=== PATIENT | female | born 1940 | race Caucasian/White ===

== ENCOUNTER 2022-02-25 20:22 | Inpatient (IN) | payer MEDICARE, BC ==
[~2022-02-25] VITALS: Ht 152.4 cm; Wt 62.6 kg
[2022-02-25] MEDS ORDERED: RANO500T3 PO (20:46)
[2022-02-25] MEDS ORDERED: NIFE30TA91 PO (20:46)
[2022-02-25] MEDS ORDERED: OLME1TAB19 PO (20:46)
[2022-02-25] MEDS ORDERED: TRAZ-182 PO (20:46)
[2022-02-25] MEDS ORDERED: FURO40TA5 PO (20:46)
--- NOTE | 2022-02-25 20:50 | NUR ---
Dr. Crandall at bedside for MSE.
[2022-02-25] MEDS ORDERED: ENALAPRILAT DIHYDRATE 1.25 MG/1 ML VIAL IV ONE ×2 (20:57→21:00)
[2022-02-25] MEDS ORDERED: ONDANSETRON 4 MG/2 ML VIAL ONE (20:57)
[2022-02-25] MEDS ORDERED: CLONIDINE HCL 0.1 MG TABLET ONE (20:58)
[2022-02-25] MEDS ORDERED: CLONIDINE HCL 0.1 MG TABLET PO ONE (21:00)
[2022-02-25] MEDS ORDERED: ONDANSETRON 4 MG/2 ML VIAL IV ONE (21:00)
[2022-02-25] MEDS ORDERED: ACETAMINOPHEN ES 500 MG TABLET ONE (21:05)
[2022-02-25] MEDS ORDERED: IV NORMAL SALINE 500 ML BAG IV ONE (21:15)
[2022-02-25 21:23] LABS: HEMATOCRIT 30.5 % (31.2-41.9); MEAN CORPUSCULAR HEMOGLOBIN 29.8 uug (24.7-32.8); MEAN CORPUSCULAR VOLUME 85.4 fL (75.5-95.3); PLATELET COUNT (AUTO) 286 K/uL (179-408)
[2022-02-25] MEDS ORDERED: ACETAMINOPHEN ES 500 MG TABLET PO ONE ×2 (21:30)
[2022-02-25 21:31] LABS: CREATININE 0.9 mg/dL (0.6-1.3); POTASSIUM 2.8 mmol/L (3.5-5.1)
--- NOTE | 2022-02-25 21:35 | NUR ---
Pt provided urine sample, sent to lab, patient out of ER for CT.
[2022-02-25 21:36] LABS: BILIRUBIN,TOTAL 0.4 mg/dL (0.2-1.0); TOTAL PROTEIN, SERUM 7.5 g/dL (6.4-8.2)
[2022-02-25 21:39] LABS: *BILIRUBIN,URIN NEGATIVE (NEGATIVE); *BLOOD, URINE NEGATIVE (NEGATIVE); *CLARITY,URINE CLEAR (CLEAR); *COLOR,URINE LIGHT YELLOW (YELLOW); *KETONES,URINE NEGATIVE (NEGATIVE); *UROBILINOGEN,URINE 0.2 E.U./dl (NORMAL); LEUKOCYTE ESTERASE ,URINE TRACE (NEGATIVE); NITRITE, URINE NEGATIVE (NEGATIVE); PH,URINE 8.5 (5.0-8.0); UGLUCOSE NEGATIVE (NEGATIVE)
--- NOTE | 2022-02-25 21:50 | NUR ---
Pt back to ER from CT.
[2022-02-25] MEDS ORDERED: POTASSIUM CHLORIDE 20 MEQ TAB.PRT.SR PO ONE (22:00)
[2022-02-25] MEDS ORDERED: POTASSIUM CHLORIDE 20 MEQ TAB.PRT.SR ONE (22:02)
--- NOTE | 2022-02-25 22:29 | NUR ---
Jesse rodrigues in [facility] - 02/25/22 at 2230 by TAN Called [facility] to page Dr. Mike Bone.
--- NOTE | 2022-02-25 22:30 | NUR ---
Called [facility] to page Loretta Edmond NP.
[2022-02-25 22:40] LABS: BACTERIA,URINE NONE SEEN /HPF (NONE SEEN); RBC,URINE 0-3 /HPF (0-3); SQUAMOUS EPITHELIAL CELL,UR FEW /HPF (NONE SEEN); WBC,URINE 0-3 /HPF (0-3)
--- NOTE | 2022-02-25 22:41 | NUR ---
Dr. Crandall on panel call with Loretta Edmond [employer]. Patient accepted for admission to [facility], diagnosis: hyponatremia.
[2022-02-25] MEDS ORDERED: HYDROMORPHONE 1 MG/1 ML DISP.SYRIN ONE (23:08)
[2022-02-25] MEDS ORDERED: HYDROMORPHONE 1 MG/1 ML DISP.SYRIN IV ONE (23:15)
--- NOTE | 2022-02-25 23:22 | NUR ---
Report given to Lisa RODRIGUEZ Tele.
[2022-02-25] MEDS ORDERED: hydrALAZINE HCL 20 MG/1 ML VIAL IV PRN (23:30)
[2022-02-25] MEDS ORDERED: IV 0.9% SODIUM CHLORID+ 20 KCL 1,000 ML IV PRN (23:30)
[2022-02-25] MEDS ORDERED: MAGNESIUM HYDROXIDE 30 ML LIQUID UDC PO PRN (23:30)
[2022-02-25] MEDS ORDERED: REMEDY ESSENTIAL ZINC PASTE 113 GM TP PRN (23:30)
[2022-02-26] MEDS ORDERED: CEFTRIAXONE 1 G in IV DEXTROSE 5% 50 ML IV SCH ×2
[2022-02-26 00:48] VITALS: BP 103/52
[2022-02-26] MEDS: ENOXAPARIN SODIUM 40 MG/0.4 ML DISP.SYRIN SQ SCH ×2 (00:49→20:26)
[2022-02-26] MEDS ORDERED: IV 0.9% SODIUM CHLORID+ 20 KCL 1,000 ML ONE (00:53)
[2022-02-26] MEDS: ACETAMINOPHEN 325 MG TABLET PO PRN ×2 (00:58→07:39)
[2022-02-26] MEDS ORDERED: CEFTRIAXONE /D5W 50ML IVPB **ER PYXIS IV ONE (01:03)
--- NOTE | 2022-02-26 01:30 | NUR ---
Admitted pt to tele from ER accompanied by Maxi RODRIGUEZ via guillermo. She is alert and oriented x4, able to make needs known. On room air, no respiratory distress noted. HOB elevated d/t to patient feeling dizzy and nauseated. Initial assessment and full body assessment done. Noted with back end engineer on JONATHAN, given to daughter in law. IV on R wrist G#20 patent and intact. All needs attended. Call light placed within reach.
[2022-02-26] MEDS: ONDANSETRON 4 MG/2 ML VIAL IV PRN ×3 (01:35→15:17)
[2022-02-26] MEDS: HYDROMORPHONE 1 MG/1 ML DISP.SYRIN IV PRN ×2 (04:32→10:20)
[2022-02-26 04:39] VITALS: BP 102/45
--- NOTE | 2022-02-26 05:31 | NUR ---
Patient c/o of headache, tylenol 650 mg PRN given. Still complaint of terrible pain after [address] Celaya informed and gave order of Dilaudid 0.5 mg IVP Q4H PRN, aware of codeine allergy. Dilaudid given and tolerated well. No allergic reaction noted.
[2022-02-26 06:46] LABS: HEMATOCRIT 29.5 % (31.2-41.9); MEAN CORPUSCULAR HEMOGLOBIN 29.5 uug (24.7-32.8); MEAN CORPUSCULAR VOLUME 85.5 fL (75.5-95.3); PLATELET COUNT (AUTO) 262 K/uL (179-408)
[2022-02-26 07:03] LABS: CREATININE 0.7 mg/dL (0.6-1.3); MAGNESIUM 1.8 mg/dL (1.8-2.4); PHOSPHOROUS 2.8 mg/dL (2.5-4.9); POTASSIUM 3.4 mmol/L (3.5-5.1)
[2022-02-26 07:16] LABS: THYROID STIMULATING HORMONE 2.207 mIU/mL (0.358-3.740)
--- NOTE | 2022-02-26 08:12 | NUR ---
Patient complained of a headache but declined Tylenol, said it doesn't help her. Also complained of nausea and was given Zofran. Patient is resting in bed now.
[2022-02-26] MEDS ORDERED: NIFEdipine XL 90 MG TABSR PO SCH (09:00)
[2022-02-26] MEDS ORDERED: PANTOPRAZOLE SODIUM 40 MG VIAL IV SCH (09:00)
[2022-02-26] MEDS: ASPIRIN 81 MG TAB.CHEW PO SCH (09:51)
[2022-02-26] MEDS: RANOLAZINE 500 MG TAB.ER.12H PO SCH ×2 (09:51→20:18)
[2022-02-26] MEDS: LOSARTAN POTASSIUM 50 MG TABLET PO SCH (09:57)
[2022-02-26] MEDS ORDERED: POTASSIUM CHLORIDE 20 MEQ TAB.PRT.SR PO ONE (10:00)
[2022-02-26] MEDS ORDERED: METOCLOPRAMIDE HCL 10 MG/2 ML VIAL IV PRN (11:15)
[2022-02-26 12:00] VITALS: BP 132/65
[2022-02-26 16:00] VITALS: BP 111/61
[2022-02-26] MEDS ORDERED: IV SODIUM CHLORIDE 3% 500 ML IV PRN (16:30)
[2022-02-26] MEDS ORDERED: PANT40TA2 PO (18:15)
[2022-02-26] MEDS ORDERED: ROSU10TA2 GT (18:18)
[2022-02-26] MEDS ORDERED: FLUT16SP16 BNOSTRILS (18:19)
--- NOTE | 2022-02-26 18:34 | NUR ---
Patient received care well throughout shift with no signs of distress or discomfort. Patient has new IV site on left wrist 22g running NaCl 3% at 40cc/hr. IV site patent and intact. Bed left in lowest position with call light within reach. Comfort measures provided. Will endorse information to PM nurse.
--- NOTE | 2022-02-26 19:45 | NUR ---
Received patient in bed. AAOX4. No acute distress noted at this time. Blood pressure within normal limits. IV access running 3% NaCl at 40cc/hr, to run for 5 hours only. Safety and Aspirations precautions in place. Will continue to monitor.
[2022-02-26] MEDS: AMOXICILLIN-CLAVUL 875-125MG TABLET PO SCH (20:18)
[2022-02-26 20:20] VITALS: BP 117/57
[2022-02-26] MEDS: POTASSIUM CHLORIDE 10 MEQ TAB.PRT.SR PO SCH (20:20)
[2022-02-26] MEDS ORDERED: ATORVASTATIN 20 MG TABLET PO SCH (21:00)
[2022-02-26] MEDS ORDERED: TRAZODONE 50 MG TABLET PO SCH (21:00)
[2022-02-27 00:42] VITALS: BP 119/66
[2022-02-27 04:10] VITALS: BP 123/68
[2022-02-27 06:24] LABS: CREATININE 0.8 mg/dL (0.6-1.3); POTASSIUM 3.8 mmol/L (3.5-5.1)
--- NOTE | 2022-02-27 06:43 | NUR ---
Patient slept through the night. No acute distress noted. Sinus rhythm on tele monitor. All needs attended to and met. Safety precautions maintained. Will endorse to day shift.
[2022-02-27] MEDS ORDERED: PANTOPRAZOLE SODIUM 40 MG TABLET.DR PO SCH (07:00)
--- NOTE | 2022-02-27 07:30 | NUR ---
PATIENT RECEIVED IN BED AWAKE ALERT AND ORIENTED DENIES PAIN OR DISCOMFORTS AT THIS TIME ON ROOM AIR WITH NO SOB AT THIS TIME REMAIN ON IVF ORDERED WITH NO S/S OF INFILTERATION ON SITE [place]ON DIET ORDERED NO S/S OF ADVERSE EFFECT FROM ATB ORDERED NOT IN DISTRESS AT THIS TIME. Addendum: 02/27/22 at 1229 by CHAYA MIR RN ERROR PATIENT IS NOT ON IVF AT THIS TIME.
[2022-02-27] MEDS: RANOLAZINE 500 MG TAB.ER.12H PO SCH (08:33)
[2022-02-27] MEDS: ASPIRIN 81 MG TAB.CHEW PO SCH (08:33)
[2022-02-27] MEDS: AMOXICILLIN-CLAVUL 875-125MG TABLET PO SCH (08:33)
[2022-02-27] MEDS: POTASSIUM CHLORIDE 10 MEQ TAB.PRT.SR PO SCH (08:34)
[2022-02-27] MEDS: LOSARTAN POTASSIUM 50 MG TABLET PO SCH (08:34)
[2022-02-27] MEDS: ACETAMINOPHEN 325 MG TABLET PO PRN (09:26)
[2022-02-27 12:02] VITALS: BP 112/61
--- NOTE | 2022-02-27 13:40 | NUR ---
PATIENT SEEN BY DR BELLA WITH ORDER TO DISCHARGE PATIENT HOME TODAY PATIENT AWARE AND STATED THAT HER SON GISSELL WILL BE HERE ABOUT 1530 TO TAKE HER HOME.
[2022-02-27] MEDS ORDERED: LOSA50TA3 PO (13:46)
[2022-02-27] MEDS ORDERED: ROSU10TA2 PO (13:46)
[2022-02-27] MEDS ORDERED: AMOX1TAB16 PO (13:46)
[2022-02-27] MEDS ORDERED: ASPI81TA31 PO (13:46)
[2022-02-27] MEDS ORDERED: FURO-152 PO (13:46)
[2022-02-27] MEDS ORDERED: POTA10CA43 PO (13:46)
--- NOTE | 2022-02-27 15:30 | NUR ---
PATIENT DISCHARGED PICKED UP BY HIS SON GISSELL IN SATISFACTORY CONDITION WITH DISCHARGE INSTRUCTIONS AND PATIENT NOTIFIED THAT HER PRESCRIPTIONS WAS ELECTRONICALLY SENT TO HER PHARMACY TO PICK THEM UP AND SHE EXPRESSED UNDERSTANDING.
== END 2022-02-27 15:30 | disposition home or self-care (01) | DRG 153 ==
LOC: ER 20:30 → TELE3 23:34 → MEDSURG3 02-27 13:39
PROVIDERS: ADMIT Internal Medicine; ATTEND Internal Medicine
DX: J32.8 Other chronic sinusitis (principal); E22.2 Syndrome of inappropriate secretion of antidiuretic hormone; E66.9 Obesity, unspecified; D50.9 Iron deficiency anemia, unspecified; E87.6 Hypokalemia; I10 Essential (primary) hypertension; I25.10 Atherosclerotic heart disease of native coronary artery without angina pectoris; R73.9 Hyperglycemia, unspecified; M19.90 Unspecified osteoarthritis, unspecified site; R93.1 Abnormal findings on diagnostic imaging of heart and coronary circulation; Z20.822 Contact with and (suspected) exposure to COVID-19; R51.9 Headache, unspecified
CPT/HCPCS: 36415; 70450; 71045; 83690; 83735; 84100; 84132; 84443; 84484; 85025; 85651; 85730; 87086; 93005; 93307; 97161; A4663; A9150; C9113; G0378; J0696; J1170; J1650; J2405; J2765; J3490; J7040

== ENCOUNTER 2022-03-07 05:17 | Emergency (ER) | payer MEDICARE, BC ==
[~2022-03-07] VITALS: Ht 152.4 cm; Wt 63.5 kg
[~2022-03-07 05:17] MED LIST: AMOX1TAB16 PO; ASPI81TA31 PO; FURO-152 PO; LOSA50TA3 PO; PANT40TA2 PO; POTA10CA43 PO; RANO500T3 PO; ROSU10TA2 PO; TRAZ-182 PO
--- NOTE | 2022-03-07 05:40 | NUR ---
pt in room 4a c/o elevated blood pressure.
--- NOTE | 2022-03-07 05:45 | NUR ---
Dr. Flores at bedside for MSE.
[2022-03-07 06:33] LABS: HEMATOCRIT 28.8 % (31.2-41.9); MEAN CORPUSCULAR HEMOGLOBIN 29.7 uug (24.7-32.8); MEAN CORPUSCULAR VOLUME 87.8 fL (75.5-95.3); PLATELET COUNT (AUTO) 274 K/uL (179-408)
[2022-03-07 06:34] LABS: CARBON DIOXIDE 26 mmol/L (21-32); CHLORIDE 102 mmol/L (98-107); GLUCOSE 118 mg/dL (74-106); MAGNESIUM 2.1 mg/dL (1.8-2.4); POTASSIUM 3.7 mmol/L (3.5-5.1); UREA NITROGEN, BLOOD 20 mg/dL (7-18)
--- NOTE | 2022-03-07 07:03 | NUR ---
Patient discharged to home in stable condition. Written and verbal after care instructions given. Patient verbalizes understanding of instructions. Stressed follow up or return to ER for worsening s/s. instructions reviewed with pt, she is calling a caregiver to come and get her. the pt will remain in room 4a until child care center administrator arrives, dayshift RN, aware.
--- NOTE | 2022-03-07 07:28 | NUR ---
Pt picked up by caregiver.
[2022-03-07 07:29] VITALS: BP 150/94
== END 2022-03-07 07:31 | disposition home or self-care (01) ==
LOC: ER 05:17
DX: I10 Essential (primary) hypertension (principal); I45.10 Unspecified right bundle-branch block; I25.10 Atherosclerotic heart disease of native coronary artery without angina pectoris; Z79.899 Other long term (current) drug therapy; G31.83 Neurocognitive disorder with Lewy bodies; F02.80 Dementia in other diseases classified elsewhere, unspecified severity, without behavioral disturbance, psychotic disturbance, mood disturbance, and anxiety
CPT/HCPCS: 36415; 83735; 85025; 93005; A4663

== ENCOUNTER 2024-05-18 17:49 | Emergency (ER) | payer MEDICARE, BC ==
[~2024-05-18] VITALS: Ht 152.4 cm; Wt 59.0 kg
[~2024-05-18 17:49] MED LIST changes: -ROSU10TA2 PO
[2024-05-18 19:18] LABS: BASOPHILS # (AUTO) 0.1 K/UL (0.0-0.2); EOSINOPHILS # (AUTO) 0.2 K/uL (0.0-0.7); EOSINOPHILS % (AUTO) 2.9 % (0.0-7.0); HEMATOCRIT 28.3 % (31.2-41.9); HEMOGLOBIN 9.4 g/dL (10.9-14.3); LYMPHOCYTES # (AUTO) 1.6 K/uL (0.8-4.8); LYMPHOCYTES % (AUTO) 19.6 % (20.5-51.5); MEAN CORPUSCULAR HEMOGLOBIN 28.4 uug (24.7-32.8); MEAN CORPUSCULAR HGB CONC 33 g/dL (32.3-35.6); MEAN CORPUSCULAR VOLUME 85.8 fL (75.5-95.3); MONOCYTES # (AUTO) 0.9 K/uL (0.1-1.30); MONOCYTES % (AUTO) 10.6 % (0.0-11.0); NEUTROPHILS # (AUTO) 5.5 K/uL (1.8-8.9); NEUTROPHILS % (AUTO) 65.9 % (38.5-71.5); PLATELET COUNT (AUTO) 363 K/uL (179-408); RED BLOOD CELL COUNT(AUTO) 3.29 MIL/uL (3.63-4.92); RED CELL DISTRIBUTION WIDTH 17.2 % (12.3-17.7); WHITE BLOOD COUNT (AUTO) 8.4 K/uL (3.8-11.8)
[2024-05-18 19:24] LABS: DIFFERENTIAL COMMENT 1
[2024-05-18 19:26] LABS: CALCIUM 8.7 mg/dL (8.5-10.1); CARBON DIOXIDE 21 mmol/L (21-32); CHLORIDE 97 mmol/L (98-107); CREATININE 0.6 mg/dL (0.6-1.3); GLUCOSE 110 mg/dL (74-106); POTASSIUM 3.9 mmol/L (3.5-5.1); SODIUM SERUM 130 mmol/L (136-145); UREA NITROGEN, BLOOD 18 mg/dL (7-18)
[2024-05-18] MEDS ORDERED: ASPI81TA31 PO (19:27)
[2024-05-18] MEDS ORDERED: SACU1TAB4 PO (19:27)
[2024-05-18] MEDS ORDERED: CARV12.52 PO (19:27)
[2024-05-18] MEDS ORDERED: ROSU20TA2 PO (19:27)
[2024-05-18 19:31] LABS: ALANINE AMINOTRANSFERASE 26 U/L (14-59); ALBUMIN 3.1 g/dL (3.4-5.0); ALKALINE PHOSPHATASE 72 U/L (50-136); ASPARTATE AMINOTRANSFERASE 8 U/L (15-37); BILIRUBIN,TOTAL 0.6 mg/dL (0.2-1.0); LIPASE 38 U/L (16-77); TOTAL PROTEIN, SERUM 6.5 g/dL (6.4-8.2)
[2024-05-18 19:32] LABS: BILIRUBIN,DIRECT < 0.1 mg/dL (0.0-0.2)
[2024-05-18] MEDS: IV LACTATED RINGERS SOLUTION 1,000 ML IV ONE (19:47)
[2024-05-18] MEDS ORDERED: MORPHINE SULFATE 2 MG/1 ML DISP.SYRIN ONE ×2 (20:31→21:11)
[2024-05-18] MEDS ORDERED: METOCLOPRAMIDE HCL 10 MG/2 ML VIAL ONE (20:31)
[2024-05-18] MEDS: MORPHINE SULFATE 2 MG/1 ML DISP.SYRIN IV ONE ×2 (20:38→21:53)
[2024-05-18 20:52] LABS: *CLARITY,URINE CLEAR (CLEAR); *COLOR,URINE YELLOW (YELLOW); *PROTEIN,URINE NEGATIVE (NEGATIVE); UGLUCOSE NEGATIVE (NEGATIVE)
[2024-05-18 20:53] LABS: *BILIRUBIN,URIN NEGATIVE (NEGATIVE); *BLOOD, URINE TRACE (NEGATIVE); *KETONES,URINE NEGATIVE (NEGATIVE); *UROBILINOGEN,URINE 0.2 E.U./dl (NORMAL); LEUKOCYTE ESTERASE ,URINE 1+ (NEGATIVE); NITRITE, URINE NEGATIVE (NEGATIVE)
[2024-05-18 21:00] LABS: RBC,URINE 0-3 /HPF (0-3)
[2024-05-18 21:01] LABS: BACTERIA,URINE FEW /HPF (NONE SEEN); SQUAMOUS EPITHELIAL CELL,UR FEW /HPF (NONE SEEN)
[2024-05-18] MEDS ORDERED: ONDANSETRON 4 MG/2 ML VIAL ONE (21:10)
[2024-05-18] MEDS: METOCLOPRAMIDE HCL 10 MG/2 ML VIAL IV ONE (21:14)
[2024-05-18 21:39] LABS: *SODIUM RNDM,URINE 53 mmol/L (40-220)
[2024-05-18] MEDS: ONDANSETRON 4 MG/2 ML VIAL IV ONE (21:53)
[2024-05-18] MEDS ORDERED: FOSFOMYCIN TROMETHAMINE 3 GM PACKET ONE (21:58)
[2024-05-18] MEDS: FOSFOMYCIN TROMETHAMINE 3 GM PACKET PO ONE (22:02)
[2024-05-18 22:45] VITALS: BP 139/63; TEMP 98.6; O2SAT 98
== END 2024-05-18 22:45 | disposition home or self-care (01) ==
LOC: ER 17:50
DX: N39.0 Urinary tract infection, site not specified (principal); R10.32 Left lower quadrant pain; I10 Essential (primary) hypertension; Z98.890 Other specified postprocedural states; Z79.899 Other long term (current) drug therapy; Z79.82 Long term (current) use of aspirin; Z88.5 Allergy status to narcotic agent
CPT/HCPCS: 99285; 74176; 96374; 96361; 71045; 96375; 80076; 80048; 81001; 83690; 84300; 85025; 36415; 93005 ×2; J2765; J2405; J2270 ×2; J7120; A4606; A4663